=== PATIENT | female | born 2005 | race African-American/Black ===

== ENCOUNTER 2025-06-09 10:51 | Inpatient (IN) ==
--- NOTE | 2025-06-09 11:19 | Emergency Department Note ---
Impression & Plan Suicidal ideations, Depression ED Provider Note NAME: CALDERON SUAZO AGE: 20 SEX: F : 2005 ARRIVES VIA: [employer] INFORMANT: Patient ED PROVIDER(S): Theodore Portillo DO CHIEF COMPLAINT: Suicidal ideations HPI: Patient is a 20-year-old female with a past medical history of depression and borderline personality disorder who presents to the ER from [facility]. Patient notes that things have been getting worse for her since May. She admits to suicidal ideations with several things that she has thought of/ideas. They started last week and has thought of different ways to kill her self which include cutting her wrist. She notes that she feels uncomfortable being at home as it is getting harder not to do this. Denies any auditory visual hallucinations. ADDITIONAL HISTORY OBTAINED: Per HPI Chronic Medical/Social Conditions Affecting Care: Per HPI PAST MEDICAL HISTORY:See Below PAST SURGICAL HISTORY:See Below FAMILY HISTORY:See Below SOCIAL HISTORY:See Below HOME MEDICATIONS:See Below ALLERGIES:See Below VITALS:See Below PHYSICAL EXAMINATION: GENERAL: Sitting up in bed, alert, well appearing, well nourished, no distress, non-toxic EYE EXAM: normal conjunctiva. OROPHARYNX: no exudate, no erythema, lips, buccal mucosa, and tongue normal and mucous membranes are moist NECK: supple, no nuchal rigidity, no adenopathy, non-tender LUNGS: Clear to auscultation. Normal chest wall mechanics HEART: no murmurs, S1 normal and S2 normal ABDOMEN: abdomen soft, non-tender, normo-active bowel sounds, no masses, no rebound or guarding. UPPER EXTREMITIES: upper extremities are grossly normal. LOWER EXTREMITIES: No pitting edema. NEURO EXAM: Normal sensorium, cranial nerves II-XII grossly intact, normal speech, no gross weakness of arms, no gross weakness of legs. PSYCH: Admits to suicidal ideations with a plan MEDICAL DECISION MAKING: Patient is a 20-year-old female who presents ER for suicidal ideations with a plan. Blood work was obtained and shows no significant leukocytosis. Mild anemia 11.4. BMP with mild hypokalemia at 3.0. LFTs bilirubin and TSH was unremarkable. UA was clean. negative. Tox was positive for marijuana. COVID-negative. Patient was seen evaluated by our psychiatric healthcare specialist. Referral was made to [facility] and patient was accepted on . Consults/Care Managements Discussions: Per MDM Triage Nursing notes reviewed. Limited review of prior medical records performed Vital Signs: reviewed and remarkable for no significant abnormalities Differential diagnosis: Mood disorder, infection, hypoglycemia, electrolyte abnormalities, cardiac sources, intracerebral event, toxicologic, trauma, neurologic, as well as other pathologies. ER treatment provided: See below Diagnostics interpreted by me include EKG and cardiac monitoring as listed below: -ECG: none -Laboratory studies:Interpreted by me as stated above in MDM and shown below. Imaging studies: Xrays: As interpreted by me:none CTs show: none Procedures:none Critical Care: None Past Med/Surg History Problem List (Updated 06/09/25 @ 17:01 by Theodore Portillo DO) Depression (Acute) Suicidal ideations (Acute) Medical History (Updated 06/09/25 @ 17:01 by Theodore Portillo DO) Anxiety Depression History of COVID-19 02/2022 mild symptoms Surgical History (Updated 06/07/23 @ 15:04 by Deepika Combs RN) Hx of wisdom tooth extraction Social History Smoking Status: Current some day smoker Tobacco Type: Cigarettes and E-cigarettes / Vaping Second Hand Exposure: No; Do You Dip or Chew Tobacco: No; Hx Alcohol Use: No Hx Substance Use: No Preferred Language: East Timorese Ammonia Box Operator Required: No Beliefs That Will Affect Care: None Current Living Situation: Alone Feels Safe at Home: Yes Gender Identity: Female Assistive Devices: None Allergies Allergies Allergy/AdvReac Type Severity Reaction Status Date / Time No Known Allergies Allergy Verified 06/19/23 06:23 Home Meds Home Medications Medication Instructions Recorded Confirmed ibuprofen 200 mg tablet 200 mg PO Q6H PRN Pain 06/07/23 06/07/23 escitalopram oxalate 10 mg tablet 15 mg PO DAILY 06/19/23 06/19/23 (Lexapro) Results & Data (ED) Vital Signs Vital Signs - 24 hr 06/09/25 11:23 06/09/25 13:30 06/09/25 15:59 Temperature 36.7 C 36.7 C Temperature Source Oral Oral Pulse Rate 80 Pulse Rate [Right Finger] 79 82 Pulse Rhythm [Right Finger] Regular Pulse Strength [Right Finger] Normal Respiratory Rate 16 16 18 Respiratory Effort / Characteristics Non-Labored Spontaneous Accessory Muscle Use Non-Labored Spontaneous Respiratory Depth Normal Normal Respiratory Pattern Regular Regular Blood Pressure 133/75 Blood Pressure [Left Arm] 126/80 126/84 Blood Pressure Mean 94 Blood Pressure Mean [Left Arm] 95 98 Blood Pressure Position Semi-fowlers Blood Pressure Position [Left Arm] Lying Sitting Pulse Oximetry 100 100 99 Oxygen Delivery Method Room Air Room Air Room Air Sepsis Recent Fever Within 48 Hours No Sepsis New/Unexplained Change in Mental Status N/A Sepsis Action Taken by Nursing No Action Required Laboratory Data 06/09/25 11:15 06/09/25 11:15 Lab Results 06/09/25 Range/Units 11:15 WBC 6.96 (4.8-10.8) K/ul RBC 4.11 L (4.20-5.40) M/uL Hgb 11.4 L (12.0-16.0) g/dl Hct 35.1 L (37.0-47.0) % MCV 85.4 (80.0-100.0) fL MCH 27.7 (25.0-34.0) pg MCHC 32.5 (32.0-36.0) g/dL RDW Std Deviation 39.7 (36.4-46.3) fL RDW Coeff of Alma 12.8 (11.5-14.5) % Plt Count 209 (130-400) K/uL MPV 10.4 (9.4-12.4) fL Immature Gran % (Auto) 0.3 % Neut % (Auto) 76.4 % Lymph % (Auto) 16.7 % [place] % (Auto) 5.6 % Eos % (Auto) 0.7 % Baso % (Auto) 0.3 % Neut # (Auto) 5.32 (1.40-6.50) K/uL Lymph # (Auto) 1.16 L (1.20-3.40) K/uL [place] # (Auto) 0.39 (0.11-0.59) K/uL Eos # (Auto) 0.05 (0.00-0.50) K/uL Baso # (Auto) 0.02 (0.00-0.20) K/uL Immature Gran # (Auto) 0.02 (0.01-0.20) K/uL Sodium 138 (136-145) mmol/L Potassium 3.0 L (3.5-5.1) mmol/L Chloride 102 (98-107) mmol/L Carbon Dioxide 29 (21-32) mmol/L Anion Gap 7 (3-11) BUN 9 (6-23) mg/dl Creatinine 0.71 (0.6-1.2) mg/dl Est Cr Clr Drug Dosing Not Reportable eGFR 123.98 BUN/Creatinine Ratio 12.7 (10-20) Glucose 84 (70-99(Fasting)) mg/dl Calcium 9.4 (8.6-10.3) mg/dl Total Bilirubin 0.8 (0.2-1.0) mg/dl AST 17 (13-39) U/L ALT 12 (7-52) U/L Alkaline Phosphatase 60 (34-104) U/L Total Protein 7.8 (6.0-8.3) gm/dl Albumin 4.6 (3.4-5.0) gm/dl Globulin 3.2 (2.5-4.0) gm/dl Albumin/Globulin Ratio 1.4 (0.9-2) TSH 1.831 (0.300-4.500) uIu/ml Urine Color Yellow Urine Appearance Cloudy A (Clear) Urine pH 7.0 (4.5-7.5) Ur Specific [place] 1.014 (1.000-1.030) Urine Protein Negative (Negative) Urine Glucose (UA) Negative (Negative) Urine Ketones Negative (Negative) Urine Blood Negative (Negative) Urine Nitrite Negative (Negative) Urine Bilirubin Negative (Negative) Urine Urobilinogen Negative (Negative) Ur Leukocyte Esterase Negative (Negative) Urine WBC (Auto) 6-10 H (0-5) /hpf Urine RBC (Auto) 0-2 (0-2) /hpf U Hyaline Cast (Auto) 0-2 (0-2) /lpf U Epithel Cells (Auto) 6-10 H (0-2) /hpf Urine Bacteria (Auto) None Seen (None Seen) Urine Test Negative (Negative) Urine Comment Salicylates < 3.0 L (3.0-30) mg/dl Urine Opiates Screen Neg (Neg) Ur Methadone, Qual Neg (Neg) Urine Fentanyl Screen Neg (Neg) Acetaminophen < 3 L (10-30) ug/ml Urine Barbiturates Neg (Neg) Ur Phencyclidine (PCP) Neg (Neg) U Amphetamin/Meth Scrn Neg (Neg) MDMA (Ecstasy) Screen Neg (Neg) U Benzodiazepines Scrn Neg (Neg) Ur Cocaine Metabolite Neg (Neg) U Marijuana (THC) Screen Pos H (Neg) Ethyl Alcohol mg/dL < 10.0 (<10.0) mg/dl SARS-CoV-2, RNA, NAAT NEGATIVE (NEGATIVE) Discharge Plan Visit Data Chief Complaint: Mental Health Evaluation ED Provider: Theodore Portillo Discharge Problem: Suicidal ideations, Depression Condition: Fair Forms Stand Alone Forms: [facility], Suicide Prevention Resources Prescriptions Prescriptions: No Action ibuprofen 200 mg Tablet 200 mg PO Q6H PRN (Reason: Pain) escitalopram oxalate [Lexapro] 10 mg Tablet 15 mg PO DAILY Referrals Referrals: PCP,NO [Physician] - Discharge Problem: Depression Qualifiers: Depression Type: unspecified Qualified Code(s): F32.A - Depression, unspecified
[2025-06-09 11:56] LABS: Appearance Urine Cloudy (Clear); Bacteria Urine Automated None Seen (None Seen); Cast Urine Automated 0-2 /lpf (0-2); Glucose Urine UA Negative (Negative); RBC Urine Automated 0-2 /hpf (0-2)
[2025-06-09 12:08] LABS: Hematocrit (blood only) 35.1 % (37.0-47.0); Hemoglobin 11.4 g/dl (12.0-16.0); Immature Granulocytes # (auto) 0.02 K/uL (0.01-0.20); Immature Granulocytes % (auto) 0.3 %; Mean Corpuscular Hemoglobin 27.7 pg (25.0-34.0); Mean Corpuscular Volume 85.4 fL (80.0-100.0); Platelet Count 209 K/uL (130-400); RDW Standard Deviation 39.7 fL (36.4-46.3); Red Blood Count 4.11 M/uL (4.20-5.40); White Blood Count 6.96 K/ul (4.8-10.8)
[2025-06-09 12:24] LABS: Acetaminophen < 3 ug/ml (10-30); Salicylate < 3.0 mg/dl (3.0-30)
[2025-06-09 12:26] LABS: Alanine Aminotransferase 12 U/L (7-52); Albumin Globulin Ratio 1.4 (0.9-2); Albumin Level 4.6 gm/dl (3.4-5.0); Alkaline Phosphatase 60 U/L (34-104); Anion Gap 7 (3-11); Bilirubin,Total 0.8 mg/dl (0.2-1.0); Blood Urea Nitrogen 9 mg/dl (6-23); Calcium 9.4 mg/dl (8.6-10.3); Carbon Dioxide 29 mmol/L (21-32); Chloride 102 mmol/L (98-107); Globulin 3.2 gm/dl (2.5-4.0); Glucose 84 mg/dl (70-99(Fasting)); Potassium 3.0 mmol/L (3.5-5.1); Sodium 138 mmol/L (136-145); Total Protein 7.8 gm/dl (6.0-8.3)
[2025-06-09 12:36] LABS: Amphetamines+Metham, Urine Neg (Neg); MDMA (Ecstacy), Urine Neg (Neg); Marijuana, Urine Pos (Neg)
[2025-06-09 12:38] LABS: Thyroid Stimulating Hormone 1.831 uIu/ml (0.300-4.500)
[2025-06-09] MEDS ORDERED: SODIUM CHLORIDE 0.65% NA SOLN 45 ML (OCEAN) PRN (16:31)
[2025-06-09] MEDS ORDERED: ALUMINUM/MAGNESIUM SUSP 30 ML UDC PO PRN (16:31)
[2025-06-09] MEDS ORDERED: BISMUTH SUBSALICYLATE 262 MG CHEW PO PRN (16:31)
[2025-06-09] MEDS ORDERED: MAGNESIUM HYDROXIDE SUSP 30 ML UDC PO PRN (16:31)
[2025-06-09] MEDS ORDERED: ACETAMINOPHEN 325 MG TAB PO PRN (16:31)
[2025-06-09 19:32] VITALS: O2SAT 98
[2025-06-10 06:25] VITALS: RESP 16
--- NOTE | 2025-06-10 09:07 | History & Physical ---
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 She was initially evaluated and recommended for admission due to suicidal ideation. She now denies that. There is no evidence she made any attempts or plans to harm herself prior to arrival. She denies significant symptoms of depression currently, rather struggling with emotional lability associated with likely borderline personality disorder, in the context of multiple recent stressors. I did give her the Nava's borderline personality scale, as well as PHQ-9 BRYAN-7 and trauma questionnaires, to assist in diagnostic clarity. Psychologically, patient does describe a good range of coping skills that are typically effective for her. I spent greater than 45 minutes with the patient, processing her recent and chronic stressors, and identifying adaptive versus maladaptive coping patterns. She was notably able to tolerate brief lapses in our encounter, without having any escalation of behavior, or becoming increasingly guarded (even though it could have triggered a feeling of abandonment). She is agreeable to go back on Lexapro, which previously helped the emotional lability in the past, and did not cause side effects. Start 5 mg daily here. She can follow-up with her PCP about that, so no psychiatry appointment is needed in the outpatient setting. However, we will need to connect her with therapy, since [facility] will no longer see her. Also still need to gather collateral from her family, and ensure that a quick turnaround time is appropriate for her. If she tolerates the medication, family report is benign, and outpatient appointments are established, she may discharge as early as tomorrow. Overall, I spent a total of 85 minutes on this patient's care, including review of chart/records, direct evaluation of the patient, ordering medication, coordination with nursing, interdisciplinary team meeting, and documentation. (1) Suicidal ideations: (2) Major depression, recurrent: (3) Borderline personality disorder: Plan The patient was admitted to the [facility] ([facility]) on q15 min checks (behavioral with suicide precautions) for safety. The patient will participate in group, recreational, and milieu therapies and will be offered additional individual and family sessions as clinically appropriate. New medications initiated: Lexapro 5 mg Continue the following home medications: none The following PRN medications will be started as well: hydroxyzine as needed for anxiety or insomnia Milk of mag, Pepto, Imodium as needed GI distress Tylenol as needed pain Inventory Assets Strengths: good self-awareness and self-reflection Needs: outpatient follow up safety planning and identification of supports medication adjustments Suicide Risk Level Suicide Risk Level: Low (q15 min observation checks) Suicide Risk Level Comments: no history of suicide attempts, psychiatric hospitalizations. denies suicidal ideation, but reportedly did make statements prior to admission. Does have a history of nonsuicidal self injury (cutting and burning himself). Reports she feels safe on the unit. Reports she can reach out to staff if she is unable to maintain safety. Risk Factors Assessment Male: No : No Do You Have Access To A Gun?: No Health Problems: Yes Mental Health Diagnoses: Yes Substance Use Disorders: No Previous Attempt: No Family History of Suicide: No Protective Factors Assessment : No Responsible for Young Children: No Employed: No Stable Relationships: Yes Supportive Family: Yes Psychiatric History Identifying Data CALDERON SUAZO is a 20-year-old [facility] marbin who currently lives in in an apartment with a roommate, but is originally from the [place], and was admitted on 06/09/25 16:31 on a 201 voluntary commitment for depression and reported suicidal ideation. Chief Complaint "It's just been a lot". History of Present Illness Patient is not previously known to our unit. She was referred to the emergency room by a counselor at [facility], after patient reportedly made suicidal statements and endorsed having SI for the past several weeks. Patient disagrees with that assessment. She said she was trying to explain that "it has just been a lot lately." Reports that emotions have been high at times over the last few months. She had an in March, and although her family was supportive and she believed it was the right call, "been emotional." She also had some complications, and now is scheduled for a D&C on this Monday, so it has been difficult for her to put it behind her. She also says is additionally complex due to chronic family discord which have baseline leaves her to feel alone and general lack of support. She says that school has been going well, and it does help her keep moving forward despite the stressors. However, she does feel she has been very busy and has been at times hard to process her stress. Reports " I have been depressed in the past, and I really I am not depressed recently. More overwhelmed." Fabrizio says she was trying to communicate to her therapist that at times her emotions get very intense and "I just do not want to feel that way anymore." She denied ever actually wanting to or making statements that she wanted to . Says she has a lot to live for, "goals and dreams of my own", her pets/rabbits, and the people she cares about. She also feels confident that she will not feel this overwhelm forever. "I had to take myself out before and I know I can do it again." She says she had urges to burn herself over the past few weeks, but has not followed through on that. She has not cut herself in any of the longer period of time. Since arrival, patient has been tearful and isolated to to her room. She went to bed early, slept 11 hours, and has been napping off-and-on during the day. She already submitted a 72-hour notice. She is strongly advocating for quick discharge, she feels that being here and away from her familiar surroundings, without social support is more triggering to her. Past Psychiatric History Previous Psych History: Some history of depression in adolescence. She has a therapist at home in [place], and they have been seeing each other as needed while she is at school. She was also following with counselor through [facility]. Reportedly has diagnoses of depression and borderline personality disorder. Patient says the BPD was never officially diagnosed. Previously on the Lexapro. She said it did help her feel calmer in general, and her intense emotions felt more like "background noise" rather than overwhelming. She was told to stop it because she was starting a control pill. She is now off the control pill. She does not recall having any adverse effects on it. No other medication trials reported No current psychiatric provider History of emergency room evaluation in the past, but no psychiatric hospitalizations previously. Positive history of self-harm including cutting and burning, but has not engaged in this recently. Current Psychiatric Diagnosis: Depression, anxiety Do You Have Access To A Gun?: No History of Previous Suicide Attempt: No Additional Notes: Trauma possibly in manager strategy. Adopted out at age 2. Question whether this was also traumatic? Patient remains guarded about the details. This was her first . Past Head Trauma/Neuro History None reported Allergies Allergy/AdvReac Type Severity Reaction Status Date / Time No Known Allergies Allergy Verified 06/19/23 06:23 Family History Family History of: Doesn't Know Alcohol History Hx of Alcohol Use Over the Past 12 Months: Yes (drinks socially) AUDIT Total Score: 2 Smoking Use Have You Smoked or Used Tobacco Products in the Last 30 Days: No Smoking Status: Never smoker Substance History Hx of Prescription Med Misuse Over the Past 12 Months: No Hx of Over the Counter Med Misuse Over the Past 12 Months: No Hx of Inhalent Misuse Over the Past 12 Months: No Hx of Organic Substance Use Over the Past 12 Months: Yes (medical MJ daily) Hx of Illegal Substances/Street Drug Use Over Past 12 Months: No Problems as a Result of Past Substance Use: None Identified UDS positive for marijuana Personal History Living Arrangements: Apartment Living Arrangements Comments: lives with a roommate Childhood: patient was adopted at age 2. She says her parents are supportive. She has an older sister, but their relationship is currently strained. Highest Grade Completed: Some College Employment Status: Student Marital Status: Single Number Of Children: 0 Beliefs That Will Affect Care: None Current Legal Problems: No Hx Legal Problems: No Hx Traumatic Life Events: Yes Patient History Medical History (Updated 06/10/25 @ 14:01 by Ellie Bills DO) Anxiety Depression History of COVID-19 02/2022 mild symptoms Surgical History (Updated 06/07/23 @ 15:04 by Deepika Combs RN) Hx of wisdom tooth extraction Social History Smoking Status: Never smoker Tobacco Type: Cigarettes and E-cigarettes / Vaping Second Hand Exposure: No; Do You Dip or Chew Tobacco: No; Hx Alcohol Use: No Hx Substance Use: No Preferred Language: Niuean Communication Ability: Effective District Attorney Required: No Beliefs That Will Affect Care: None Current Living Situation: Alone Feels Safe at Home: Yes Gender Identity: Female Assistive Devices: None Review of Systems Review of Systems: Constitutional: No Weight Change, No Fever, No Chills ENT/Mouth: No Hearing Changes, No Nasal Congestion, No sore throat Eyes: No Vision Changes Cardiovascular: No Chest Pain, No SOB, No Palpitations Respiratory: No Cough, No Wheezing, No Dyspnea Gastrointestinal: No Nausea, No Vomiting, No Diarrhea, No Constipation Urinary: No Frequency, No Urinary Incontinence, No Dysuria Musculoskeletal: No Arthralgias, No Myalgias, No Joint Stiffness, Skin: No Skin Lesions, No Pruritis Neuro: No Weakness, No Numbness, No Paresthesias, No Dizziness, No Recent Falls Heme/Lymph: No Bruising, No Bleeding Endocrine: No Polyuria, No Polydipsia, No Temperature Intolerance Physical Exam Psychiatric: Orientation: alert, oriented x 3 and cooperative Apperance: appropriately dressed and appropriately groomed Eye Contact: good eye contact Motor Behavior: steady gait and station and no abnormal motor movements Speech: normal rate/rhythm/volume of speech Affect: + constricted affect and mood congruent with affect somewhat frustrated. Denies depression. Thought Process: goal directed thought process, linear/logical thought process and clear/coherent thought process Thought Content: reality based without delusions Suicidal Thoughts: denies suicidal thoughts, denies suicidal plan and denies suicidal intent Homicidal Thoughts: denies homicidal thoughts, denies homicidal plan and denies homicidal intent Hallucinations: no auditory hallucinations and no visual hallucinations Cognition: recent memory grossly intact, remote memory grossly intact, attention grossly intact and language grossly intact Insight: + fair insight Judgment: + fair judgement Vital Signs (Past 24 Hours): Last Vital Signs Temp 36.4 C L 06/10/25 06:00 Pulse 77 06/10/25 06:25 Resp 16 06/10/25 06:00 BP 113/77 06/10/25 06:25 Pulse Ox 98 06/09/25 18:54 O2 Del Method Room Air 06/09/25 18:54 Results & Data ([facility]) Laboratory Results Laboratory Results - last 24 hr 06/09/25 11:15 WBC 6.96 RBC 4.11 L Hgb 11.4 L Hct 35.1 L MCV 85.4 MCH 27.7 MCHC 32.5 RDW Std Deviation 39.7 RDW Coeff of Alma 12.8 Plt Count 209 MPV 10.4 Immature Gran % (Auto) 0.3 Neut % (Auto) 76.4 Lymph % (Auto) 16.7 [place] % (Auto) 5.6 Eos % (Auto) 0.7 Baso % (Auto) 0.3 Neut # (Auto) 5.32 Lymph # (Auto) 1.16 L [place] # (Auto) 0.39 Eos # (Auto) 0.05 Baso # (Auto) 0.02 Immature Gran # (Auto) 0.02 Sodium 138 Potassium 3.0 L Chloride 102 Carbon Dioxide 29 Anion Gap 7 BUN 9 Creatinine 0.71 Est Cr Clr Drug Dosing Not Reportable eGFR 123.98 BUN/Creatinine Ratio 12.7 Glucose 84 Calcium 9.4 Total Bilirubin 0.8 AST 17 ALT 12 Alkaline Phosphatase 60 Total Protein 7.8 Albumin 4.6 Globulin 3.2 Albumin/Globulin Ratio 1.4 TSH 1.831 Urine Color Yellow Urine Appearance Cloudy A Urine pH 7.0 Ur Specific [place] 1.014 Urine Protein Negative Urine Glucose (UA) Negative Urine Ketones Negative Urine Blood Negative Urine Nitrite Negative Urine Bilirubin Negative Urine Urobilinogen Negative Ur Leukocyte Esterase Negative Urine WBC (Auto) 6-10 H Urine RBC (Auto) 0-2 U Hyaline Cast (Auto) 0-2 U Epithel Cells (Auto) 6-10 H Urine Bacteria (Auto) None Seen Urine Test Negative Urine Comment Salicylates < 3.0 L Urine Opiates Screen Neg Ur Methadone, Qual Neg Urine Fentanyl Screen Neg Acetaminophen < 3 L Urine Barbiturates Neg Ur Phencyclidine (PCP) Neg U Amphetamin/Meth Scrn Neg MDMA (Ecstasy) Screen Neg U Benzodiazepines Scrn Neg Ur Cocaine Metabolite Neg U Marijuana (THC) Screen Pos H U Marijuana THC Carboxy Pending Drug Screen Comment Pending Ethyl Alcohol mg/dL < 10.0 SARS-CoV-2, RNA, NAAT NEGATIVE Current Inpatient Medications Current Inpatient Medications: Current Inpatient Medications Acetaminophen (Acetaminophen 325 Mg Tab) 650 mg PO Q4H PRN PRN Reason: Headache or Minor Fever Stop: 07/09/25 16:30 Al Hydrox/Mg Hydrox/Simethicone (Aluminum/Magnesium Susp 30 Ml Udc) 30 ml PO Q4H PRN PRN Reason: GI Upset Stop: 07/09/25 16:30 Bismuth Subsalicylate (Bismuth Subsalicylate 262 Mg Chew) 2 tab PO Q30M PRN PRN Reason: Loose Stool/Diarrhea Stop: 07/09/25 16:30 Hydroxyzine HCl (Hydroxyzine Hcl 25 Mg Tab) 50 mg PO HSZ PRN PRN Reason: Insomnia Stop: 07/09/25 16:30 Hydroxyzine HCl (Hydroxyzine Hcl 25 Mg Tab) 25 mg PO Q4H PRN PRN Reason: Anxiety Stop: 07/09/25 16:30 Last Admin: 06/09/25 20:07 Dose: 25 mg Magnesium Hydroxide (Magnesium Hydroxide Susp 30 Ml Udc) 30 ml PO DAILY PRN PRN Reason: Constipation Stop: 07/09/25 16:30 Sodium Chloride (Sodium Chloride 0.65% Na Soln 45 Ml ([place])) 1 - 2 sprays NA PRN PRN PRN Reason: Nasal Dryness/Congestion Stop: 07/09/25 16:30
[2025-06-10] MEDS: ESCITALOPRAM OXALATE 10 MG TAB PO SCH (16:30)
--- NOTE | 2025-06-11 08:50 | Psychiatric Progress Note ---
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 She was initially evaluated and recommended for admission due to suicidal ideation. She now denies that. There is no evidence she made any attempts or plans to harm herself prior to arrival. She denies significant symptoms of depression currently, rather struggling with emotional lability associated with likely borderline personality disorder, in the context of multiple recent stressors. A: Borderline personality disorder confirmed based on screening, discussion with patient and collateral. MDQ did raise question of bipolar 2. However at the end of the evaluation, it did seem that the changes in mood and energy are usually related to stressors and maladaptive coping, more consistent with lability associated with borderline than bipolar. A low-dose mood stabilizer may still be helpful for the lability, and considering the Lamictal. However, patient's escalation did prevent me from discussing full risks and benefits of that medication, so we will try again when she has calmed down. So far here, we have seen no engagement in programming. She is not shown adaptive coping skills, and is calling her mother repeatedly making escalated statements per the mother. Her 72-hour notice it expires tomorrow evening. If she does not retract, and does not start to engage, I may complete a 302 tomorrow, rather than discharge to the community, given we now have reports from 2 separate individuals that she has been making suicidal statements, and we witnessed escalated/agitated behavior here. Medically necessary private room given patient's agitation/escalation today. Will continue to assess daily. Overall, I spent a total of 60 minutes on this patient's care, including review of chart/records, direct evaluation of the patient, ordering medication, coordination with nursing, interdisciplinary team meeting, and documentation. (1) Suicidal ideations: (2) Major depression, recurrent: (3) Borderline personality disorder: Plan 06/11/25: - Encouraging retraction of 72-hour notice. May need to complete 302 tomorrow. - Continue current medications, but considering adding Lamictal if patient is agreeable. 06/10/25: The patient was admitted to the [facility] ([facility] mental health unit) on q15 min checks (behavioral with suicide precautions) for safety. The patient will participate in group, recreational, and milieu therapies and will be offered additional individual and family sessions as clinically appropriate. New medications initiated: Lexapro 5 mg Continue the following home medications: none The following PRN medications will be started as well: hydroxyzine as needed for anxiety or insomnia Milk of mag, Pepto, Imodium as needed GI distress Tylenol as needed pain Inventory Assets Strengths: good self-awareness and self-reflection Needs: outpatient follow up safety planning and identification of supports medication adjustments Suicide Risk Level Suicide Risk Level: Low (q15 min observation checks) Suicide Risk Level Comments: no history of suicide attempts, psychiatric hospitalizations. denies suicidal ideation, but reportedly did make statements prior to admission. Does have a history of nonsuicidal self injury (cutting and burning himself). Reports she feels safe on the unit. Reports she can reach out to staff if she is unable to maintain safety. 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 She was initially evaluated and recommended for admission due to suicidal ideation. She now denies that. There is no evidence she made any attempts or plans to harm herself prior to arrival. She denies significant symptoms of depression currently, rather struggling with emotional lability associated with likely borderline personality disorder, in the context of multiple recent stressors. Chief Complaint "Nobody is helping me here". Review of Systems Sleep Information Total Hours of Sleep: 6.5 Meal Information Percent Meal Consumed - Breakfast: 0 Percent Meal Consumed - Lunch: 25 Percent Meal Consumed - Dinner: 50 Subjective Subjective Patient was seen & assessed and interval progress reviewed with treatment team per report: colleratal collected from mom - raised concerns about recent labile behaviors Mom then called back and stated pt told her "When I leave here I"m going to kill myself and make sure I really do it this time". PT has not attended groups noted to be on phone a few times asked to be discharged and to have her cell phone expressed anger, but no negative behaviors overnight Pt 's mother called this AM and asked I met with the patient privately in her room. We discussed her symptom questionnaires at length. Pt checked yes for every question on the Romain BPD scale. She also screened positive on the MDQ. Reviewed BPD symptoms, etiology and treatment. Pt reported that the description of symptoms matched her experience, and she felt confident the diagnosis was correct. We spent more time exploring the symptoms she endorsed on the MDQ. She does report episodes of insomnia along with increased energy and goal-directed activity, which can last a few days at a time. However she does not feel she has any reckless behavior, impulsivity, or lability in those times. She described a pattern of to some degree forcing a high-energy state on herself, and attempt to distract or move forward from emotional discomfort or depression. It was not clear that the episodes of insomnia and increased energy occurred outside of specific triggers for this shifted behavior. She felt like during this time she is actually more productive, not distractible. I brought up the possibility of a low-dose mood stabilizer given the question of possible mild bipolar 2, and her significant lability associated with the borderline. We then discussed the increased concern for her safety outside the hospital, after receiving her mother's report, and then the call back the patient made additional suicidal statements. I encouraged her to retract her 72-hour notice, and engage in treatment here. Further explained that we could complete a 302 to keep her here for longer treatment if necessary, given she has now reported suicidal statements to a second constitution party. She did become upset at this point. St arted shouting, but initially stayed calmly seated in her bed. She said multiple times that being here was making her worse, and that no one was helping her, and that the staff here does not care about her. She did stand up and started to pace, became more agitated. I ended the encounter at that point. She slammed the door loudly, and pounded on the wall briefly. She did de- escalate without intervention. She did not harm herself. She was later found lying on her bathroom floor, and then moved at some point to her bed. She remained in her room rest the day. She did not want to participate in groups. This is despite nursing reminding her that some participation patient and engagement would be positive step towards discharge. Physical Exam Psychiatric Orientation: alert, oriented x 3 and cooperative Apperance: appropriately dressed and appropriately groomed Eye Contact: good eye contact Motor Behavior: steady gait and station and no abnormal motor movements During first half of encounter, speech was normal rate volume and prosody. After becoming angry, she was yelling and speaking rapidly. Affect: + labile affect, + angry affect and mood congruent with affect Mood: + angry mood Thought Process: goal directed thought process, linear/logical thought process and clear/coherent thought process Thought Content: + cognitive distortions and + persecution; no delusions Suicidal Thoughts: denies suicidal thoughts, denies suicidal plan and denies suicidal intent Denies suicidal thoughts to me, but made statements of it to her mother on the phone yesterday. Homicidal Thoughts: denies homicidal thoughts, denies homicidal plan and denies homicidal intent Hallucinations: no auditory hallucinations and no visual hallucinations Cognition: recent memory grossly intact, remote memory grossly intact, attention grossly intact and language grossly intact Estimated Intelligence: average estimated intelligence and consistent with education level Insight: + limited insight Judgment: + limited judgement Vital Signs (Past 24 Hours) Last Vital Signs Temp 36.7 C 06/11/25 06:29 Pulse 81 06/11/25 06:30 Resp 16 06/11/25 06:29 BP 120/83 06/11/25 06:30 Pulse Ox 98 06/09/25 18:54 O2 Del Method Room Air 06/09/25 18:54 Results & Data ([facility]) Current Inpatient Medications Current Inpatient Medications: Current Inpatient Medications Acetaminophen (Acetaminophen 325 Mg Tab) 650 mg PO Q4H PRN PRN Reason: Headache or Minor Fever Stop: 07/09/25 16:30 Al Hydrox/Mg Hydrox/Simethicone (Aluminum/Magnesium Susp 30 Ml Udc) 30 ml PO Q4H PRN PRN Reason: GI Upset Stop: 07/09/25 16:30 Bismuth Subsalicylate (Bismuth Subsalicylate 262 Mg Chew) 2 tab PO Q30M PRN PRN Reason: Loose Stool/Diarrhea Stop: 07/09/25 16:30 Escitalopram Oxalate (Escitalopram Oxalate 10 Mg Tab) 5 mg PO QAM DAVID Stop: 07/10/25 14:14 Last Admin: 06/10/25 16:30 Dose: 5 mg Hydroxyzine HCl (Hydroxyzine Hcl 25 Mg Tab) 50 mg PO HSZ PRN PRN Reason: Insomnia Stop: 07/09/25 16:30 Hydroxyzine HCl (Hydroxyzine Hcl 25 Mg Tab) 25 mg PO Q4H PRN PRN Reason: Anxiety Stop: 07/09/25 16:30 Last Admin: 06/09/25 20:07 Dose: 25 mg Magnesium Hydroxide (Magnesium Hydroxide Susp 30 Ml Udc) 30 ml PO DAILY PRN PRN Reason: Constipation Stop: 07/09/25 16:30 Sodium Chloride (Sodium Chloride 0.65% Na Soln 45 Ml ([place])) 1 - 2 sprays NA PRN PRN PRN Reason: Nasal Dryness/Congestion Stop: 07/09/25 16:30 Mental Health & Subst Abuse Tx Psychiatrist Name of Psychiatrist: N/A Therapist Name of Therapist: [facility] Ciso Name of Ciso: n/a Post Discharge Appointments Primary Care Physician Name Of Family Doctor/PCP: [facility] Date of Future Appointment with PCP: 06/24 Time of Appointment with PCP: 10:30a Provider Appointment Comment: [address], Amelia MAN Contact Information Discharge Discharge Address: [facility] [address]
[2025-06-11] MEDS ORDERED: LORazepam 1 MG TAB PO PRN (16:31)
[2025-06-12 06:28] VITALS: TEMP 98.4
--- NOTE | 2025-06-12 08:41 | Discharge Summary ---
Date of Service June 12, 2025 History of Present Illness CALDERON SUAZO is a 20-year-old [employer] who currently lives in in an apartment with a roommate, but is originally from the [facility] area, and was admitted on 06/09/25 16:31 on a 201 voluntary commitment for depression and reported suicidal ideation. Patient is not previously known to our unit. She was referred to the emergency room by a counselor at [facility], after patient reportedly made suicidal statements and endorsed having SI for the past several weeks. Patient disagrees with that assessment. She said she was trying to explain that "it has just been a lot lately." Reports that emotions have been high at times over the last few mon. She had an in March, and although her family was supportive and she believed it was the right call, "been emotional." She also had some complications, and now is scheduled for a D&C on this Monday, so it has been difficult for her to put it behind her. She also says is additionally complex due to chronic family discord which have baseline leaves her to feel alone and general lack of support. She says that school has been going well, and it does help her keep moving forward despite the stressors. However, she does feel she has been very busy and has been at times hard to process her stress. Reports "I have been depressed in the past, and I really I am not depressed recently. More overwhelmed." Fabrizio says she was trying to communicate to her therapist that at times her emotions get very intense and "I just do not want to feel that way anymore." She denied ever actually wanting to or making statements that she wanted to . Says she has a lot to live for, "goals and dreams of my own", her pets/rabbits, and the people she cares about. She also feels confident that she will not feel this overwhelm forever. "I had to take myself out before and I know I can do it again." She says she had urges to burn herself over the past few weeks, but has not followed through on that. She has not cut herself in any of the longer period of time. Since arrival, patient has been tearful and isolated to to her room. She went to bed early, slept 11 hours, and has been napping off-and-on during the day. She already submitted a 72-hour notice. She is strongly advocating for quick discharge, she feels that being here and away from her familiar surroundings, without social support is more triggering to her. Physical Exam Psychiatric Orientation: alert, oriented x 3 and cooperative Apperance: appropriately dressed and appropriately groomed Eye Contact: good eye contact Motor Behavior: steady gait and station and no abnormal motor movements Speech: normal rate/rhythm/volume of speech Affect: + constricted affect and mood congruent with affect not labile today. Does have lability at baseline. Mood: + anxious mood some anxiety and depression, but improving. Thought Process: goal directed thought process, linear/logical thought process and clear/coherent thought process Thought Content: + cognitive distortions and reality based without delusions Suicidal Thoughts: denies suicidal thoughts, denies suicidal plan and denies suicidal intent Homicidal Thoughts: denies homicidal thoughts, denies homicidal plan and denies homicidal intent Hallucinations: no auditory hallucinations and no visual hallucinations Cognition: recent memory grossly intact, remote memory grossly intact, attention grossly intact and language grossly intact Estimated Intelligence: average estimated intelligence and consistent with education level Insight: + fair insight Judgment: + fair judgement Vital Signs (Past 24 Hours) Last Vital Signs Temp 36.9 C 06/12/25 06:25 Pulse 79 06/12/25 06:27 Resp 16 06/12/25 06:25 BP 118/77 06/12/25 06:27 Pulse Ox 98 06/09/25 18:54 O2 Del Method Room Air 06/09/25 18:54 A physical exam was performed in the ED by Dr. Theodore Portillo for the purposes of medical clearance. I accept that physical as correct and adequate for the purposes of the inpatient physical exam. Principal Diagnosis MDDR, BPD Psychiatric Data See daily stay summary. In short, safety was maintained and the patient was ultimately cooperative with care. Medication changes included initiation of Lexapro and they tolerated this well. Initially, patient was guarded and wanting to discharge quickly. She would not come out of her room for the first day, and then had ~1 day of significant irritability when staff voiced ongoing concern and recommendation for continued admission. By the end of the yesterday, she has been out of her room, visible, interactive with peers and attending programming. A family session was held and safety plan was completed prior to discharge. Day of Discharge Assessment Today the patient voices readiness for discharge. They note improvement in mood and anxiety. She rated her mood 3 out of 10 yesterday, and 5 out of 10 today. She reflected on warning signs and reasons she has to live. She is voicing desire to attend class today at 6 PM. She is denied suicidal ideation from admission, and continues to deny any. They deny thoughts of harm to others. Thoughts are organized and they are clinically improved from admission. There is no evidence of psychosis. They improved in the hospital with support and medication adjustments. They agree to take medications as prescribed and keep follow-up appointments. At the time of the discharge they are deemed to be stable and appropriate for outpatient level of care. They are not deemed to be at imminent risk of harm to self or others. They are aware of emergency and crisis services. Knows to call 911 or go to nearest emergency care center if in a crisis which cannot be handled as an outpatient. Transition of Care Transition Of Care Record: was reviewed with the patient Advance Directives Advance Directives Information Provided: Yes Advance Directives: No Mental Health Advance Directive: No Advance Directives on File: No Living Will: No Power of Information Security Architect: No Advance Directives Reason:: Declines as Mental Health Visit. Suicide Risk Level Suicide Risk Level: Low (q15 min observation checks) Suicide Risk Level Comments: no history of suicide attempts, psychiatric hospitalizations. denies suicidal ideation, but reportedly did make statements prior to admission. Does have a history of nonsuicidal self injury (cutting and burning himself). Reports she feels safe on the unit. Reports she can reach out to staff if she is unable to maintain safety. Risk Factors Assessment Male: No : No Do You Have Access To A Gun?: No Health Problems: Yes Mental Health Diagnoses: Yes Substance Use Disorders: No Previous Attempt: No Family History of Suicide: No Protective Factors Assessment : No Responsible for Young Children: No Employed: No Stable Relationships: Yes Supportive Family: Yes Total Time Total Time Spent: Greater Than 30 Minutes Total Time Includes: Examination of the patient, Discharge Planning, Medication Reconciliation and As well as (documentation) Discharge Data Lab Results 06/09/25 11:15 WBC 6.96 RBC 4.11 L Hgb 11.4 L Hct 35.1 L MCV 85.4 MCH 27.7 MCHC 32.5 RDW Std Deviation 39.7 RDW Coeff of [place] 12.8 Plt Count 209 MPV 10.4 Immature Gran % (Auto) 0.3 Neut % (Auto) 76.4 Lymph % (Auto) 16.7 Baldwin % (Auto) 5.6 Eos % (Auto) 0.7 Baso % (Auto) 0.3 Neut # (Auto) 5.32 Lymph # (Auto) 1.16 L Baldwin # (Auto) 0.39 Eos # (Auto) 0.05 Baso # (Auto) 0.02 Immature Gran # (Auto) 0.02 Sodium 138 Potassium 3.0 L Chloride 102 Carbon Dioxide 29 Anion Gap 7 BUN 9 Creatinine 0.71 Est Cr Clr Drug Dosing Not Reportable eGFR 123.98 BUN/Creatinine Ratio 12.7 Glucose 84 Calcium 9.4 Total Bilirubin 0.8 AST 17 ALT 12 Alkaline Phosphatase 60 Total Protein 7.8 Albumin 4.6 Globulin 3.2 Albumin/Globulin Ratio 1.4 TSH 1.831 Urine Color Yellow Urine Appearance Cloudy A Urine pH 7.0 Ur Specific [place] 1.014 Urine Protein Negative Urine Glucose (UA) Negative Urine Ketones Negative Urine Blood Negative Urine Nitrite Negative Urine Bilirubin Negative Urine Urobilinogen Negative Ur Leukocyte Esterase Negative Urine WBC (Auto) 6-10 H Urine RBC (Auto) 0-2 U Hyaline Cast (Auto) 0-2 U Epithel Cells (Auto) 6-10 H Urine Bacteria (Auto) None Seen Urine Test Negative Urine Comment Salicylates < 3.0 L Urine Opiates Screen Neg Ur Methadone, Qual Neg Urine Fentanyl Screen Neg Acetaminophen < 3 L Urine Barbiturates Neg Ur Phencyclidine (PCP) Neg U Amphetamin/Meth Scrn Neg MDMA (Ecstasy) Screen Neg U Benzodiazepines Scrn Neg Ur Cocaine Metabolite Neg U Marijuana (THC) Screen Pos H Ethyl Alcohol mg/dL < 10.0 SARS-CoV-2, RNA, NAAT NEGATIVE Hospital Course (1) Suicidal ideations: (2) Major depression, recurrent: (3) Borderline personality disorder: Plan 06/12/25: - Good turn-around of engagement, and reporting decreased symptoms. - Completed safety plan - Tolerated family session - Outpatient follow has been arranged - Pt has not retracted 72 hour notice and would still like discharge today. No 302 needed since she is clinically stabilizing and has support after discharge. D/c this afternoon. 06/11/25: - Encouraging retraction of 72-hour notice. May need to complete 302 tomorrow. - Continue current medications, but considering adding Lamictal if patient is agreeable. 06/10/25: [facility]) on q15 min checks (behavioral with suicide precautions) for safety. The patient will participate in group, recreational, and milieu therapies and will be offered additional individual and family sessions as clinically appropriate. New medications initiated: Lexapro 5 mg Continue the following home medications: none The following PRN medications will be started as well: hydroxyzine as needed for anxiety or insomnia Milk of mag, Pepto, Imodium as needed GI distress Tylenol as needed pain Mental Health & Subst Abuse Tx Psychiatrist Name of Psychiatrist: N/A Therapist Name of Therapist: Shaw Francisco Therapist's Resource Room Teacher Name of Resource Room Teacher: n/a Post Discharge Appointments Primary Care Physician Name Of Family Doctor/PCP: Amelia Sauceda-Dr. Marsh [facility] Date of Future Appointment with PCP: 06/24 Time of Appointment with PCP: 10:30a Provider Appointment Comment: [address], [place] [id number] Other #1: Name of Aftercare Appointment: [facility] Phone Number of Aftercare Appointment: Virtual Date of Aftercare Appointment: 06/17/25 Time of Aftercare Appointment: 9am Aftercare Appointment Comment: Zoom link will be sent to your [facility] email Contact Information Discharge Discharge Address: [facility] [address] Discharge Plan Discharge Items Patient Disposition: Home - Self-Care Reason For Visit: UNSPECIFIED DEPRESSIVE DISORDER Discharge Diagnosis: Major depressive disorder Borderline personality disorder Condition on Discharge: Fair Activity: Resume your previous activity Non-emergency contact: Primary Care Provider, Psychiatrist and Therapist Call non-emergency contact if: you have any medication questions and your symptoms worsen Follow-up/Referrals: Gabriela Marsh MD [Primary Care Provider] - Diet: Regular Addtl Attending Provider Instructions: SPECIAL CARE INSTRUCTIONS: 1. Follow through with your scheduled aftercare appointments. If unable to keep an appointment, please call to reschedule. 2. Take your medication only as prescribed. Medication should not be changed or stopped without the approval of your doctor. In the event of worsening symptoms or concerns about side effects, contact your doctor immediately. 3. Utilize new healthy coping skills, anger management skills, and stress management skills learned during your hospitalization. Journal feelings and process them with a support person. Identify stressors or situations that may result in relapse, deterioration or inappropriate behaviors and develop a plan to deal with those issues. 4. If your coping skills are ineffective and you are in crisis, contact your outpatient providers for direction. If unable to reach your providers, please call the [facility] CRISIS LINE AT , go to the [facility] walk-in center at [address], [address], [place], or go to the closest Emergency Room. 5. Avoid alcohol and un-prescribed drugs. 6. You have been provided with the Mental Health Advance Directives Pamphlet for your review. 7. Your condition is stable for discharge to outpatient level of care, but recovery is an ongoing process. Ifthoughts to harm yourself or others return, follow the safety plan developed during your stay. Planning for a safe return home includes securing weapons. Our treatment team recommends weaponsbe removed from the home until your outpatient provider reassesses your progress. In rare cases where the items themselvescannot be removed, guns and ammunitionshould be secured separatelyand keys stored by a reliable personoutside of the home. If you were admitted on an involuntary commitment, the police or other legal authorities may be involved in this process. AFTERCARE APPOINTMENTS: * Please call your insurance company prior to your scheduled appointment to confirm your aftercare providers are covered. Take your insurance information to your appointments. WHO TO CALL AND WHEN: Medical Emergencies: For questions or emergencies related to your hospital stay, please contact the Inpatient Behavioral Health Unit at [phone]. A field crop farm worker is on-call 27/02 for the Behavioral Health Unit for emergencies At any time you feel your situation is an emergency, you may also call 911 immediately. Pending Studies at Discharge: No Stand-Alone Forms: [employer], Smoking Cessation Medications and DC Order Prescriptions: New hydroxyzine HCl 25 mg Tablet 25 mg PO DAILY PRN (Reason: anxiety or agitation) 30 Days Qty: 30 0RF escitalopram oxalate 10 mg Tablet 5 mg PO QAM 30 Days Qty: 15 0RF Discharge Orders: Discharge Order (Routine); Ordered 06/12/25 Ordered By: Ellie Brumfield/Other Patient Handouts: BPD Admission Data Admit Date/Time: 06/09/25 16:31 Attending Provider: Ellie Bills Admit Provider: Ellie Bills Primary Care Provider: Gabriela Marsh Coding Level of Care Code 63157 D/C day mgmt > 30 min Diagnoses Suicidal ideations R45.851 Major depression, recurrent F33.9 Borderline personality disorder F60.3
[2025-06-12 14:05] VITALS: BP 113/77; PULSE 76
[2025-06-12 16:12] LABS: Marijuana Quant, GCMS Urine 1894 ng/mL (<5)
== END 2025-06-12 14:20 | disposition home or self-care (01) | DRG 885 ==
LOC: ED 10:51 → 3S 16:31